=== PATIENT | female | born 1985 | race Caucasian/White ===

== ENCOUNTER 2022-02-16 12:21 | Emergency (ER) | payer BC, SELFPAY ==
[2022-02-16] VITALS (9 sets, daily range): BP systolic 125–137; BP diastolic 84–99; PULSE 63–88; RESP 12–23; TEMP 36.1; O2SAT 99–100
--- NOTE | ~2022-02-16 | XR_ITS ---
EXAMINATION: XR chest 2V 02/16/2022 13:29 INDICATION: Dizziness. Tachycardia. PROCEDURE: 2 view chest COMPARISON: No prior studies for comparison. FINDINGS: The lungs are clear. The cardiomediastinal silhouette is within normal limits. There are no pleural effusions. There is no pneumothorax suspected. IMPRESSION: 1: NO ACUTE CARDIOPULMONARY DISEASE. Reviewed, dictated and finalized at location A.
[2022-02-16] MEDS: MECLIZINE HCL 12.5 MG TABLET PO (13:06)
[2022-02-16 13:25] LABS: Basophils Absolute Auto 0.1 K/mm3 (0.0-0.1); Basophils Percent Auto 0.7 % (0.2-1.2); Eosinophils Absolute Auto 0.3 K/mm3 (0-0.3); Eosinophils Percent Auto 4.1 % (0-4.4); Hematocrit 40.7 % (37.0-47.0); Hemoglobin 13.6 g/dL (12.0-15.0); Immature Granulocyte Absolute 0.02 K/mm3 (0.00-0.031); Immature Granulocyte Percent A 0.3 % (0-0.5); Lymphocytes Percent Auto 46.4 % (18.3-44.2); Mean Corpuscular HGB Conc 33.4 g/dl (32-36); Mean Corpuscular Hemoglobin 29.2 pg (26-34); Mean Corpuscular Volume 87.3 fl (80-100); Mean Platelet Volume 9.4 fl (7.4-10.4); Monocytes Absolute Auto 0.5 K/mm3 (0.1-0.6); Monocytes Percent Auto 7.3 % (2.6-8.5); Neutrophils Absolute Auto 2.8 K/mm3 (1.3-6.7); Neutrophils Percent Auto 41.2 % (45.5-73.1); Platelet Count Result 367 k/mm3 (150-375); Red Blood Count 4.66 M/mm3 (4.2-5.4); Red Cell Distribution Width 12.8 % (11.5-14.5); White Blood Count 6.9 K/mm3 (4.5-10.0)
[2022-02-16 14:26] LABS: Alanine Aminotransferase 30 U/L (6-35); Albumin Level 4.3 g/dL (3.5-5.1); Alkaline Phosphatase 92 U/L (38-126); Anion Gap 10 mmol/L (8-16); Aspartate Amino Transferase 30 U/L (14-36); Bilirubin,Total 0.4 mg/dL (0.2-1.3); Blood Urea Nitrogen 9 mg/dL (7-17); Carbon Dioxide 25 mmol/L (22-30); Chloride 101 mmol/L (98-107); Estimated CRCL calculation 79 ml/min; Estimated Glomerular Filt Rate > 60; Glucose 93 mg/dL (65-110); Potassium 3.3 mmol/L (3.4-5.0); Sodium 136 mmol/L (137-145)
--- NOTE | 2022-02-16 15:12 | ECG_ITS ---
Measurements Intervals [place] Rate: 76 P: [place]: 174 QRS: QRSD: 90 T: QT: 400 QTc: 0 Interpretive Statements SINUS RHYTHM WITH PREMATURE ATRIAL CONTRACTIONS BASELINE ARTIFACT NONSPECIFIC T-WAVE ABNORMALITY BORDERLINE ECG WARNING: DATA QUALITY MAY AFFECT INTERPRETATION NO PREVIOUS ECG AVAILABLE FOR COMPARISON Electronically Signed On 02-16-2022 15:18:27 CDT by Tommy De La Fuente M.D.
--- NOTE | 2022-02-16 15:25 | ED.ARRPALP ---
HPI - Arrhythmia/Palpitations General Chief Complaint: Arrhythmia/Palpitations Stated Complaint: racing heart Time Seen by Provider: 02/16/22 12:36 History of Present Illness HPI narrative: Patient is a 36-year-old female who presents ER with racing of the heart. Her heart rate got up to 110 bpm while she was having episode of feeling flushed and lightheaded like she might pass out. She continued to have these episodes but her heart rate would only get up to 90 bpm. No chest pain or chest pressure. No heaviness. She had no loss of consciousness. No history of vertigo. No spinning dizziness. She does have some mild sinus congestion but no tinnitus or pressure in the ears. Related Data Allergies Allergy/AdvReac Type Severity Reaction Status Date / Time No Known Allergies Allergy Unknown NONE Verified 06/24/11 13:41 Review of Systems Review of Systems: All systems reviewed & are unremarkable except as noted in HPI and below Constitutional: Constitutional: Denies fatigue and Denies fever(s) ENT: Reports dizziness, Reports nasal congestion and Denies sore throat Cardiovascular: Cardiovascular: Denies chest pain, Reports rapid heart rate and Denies radiating jaw, neck or arm pain Respiratory: Respiratory: Denies cough and Denies dyspnea Gastrointestinal: Gastrointestinal: Denies abdominal pain, Denies nausea and Denies vomiting Neurologic: Denies headache(s), Denies focal weakness and Denies numbness PMFSH Past Medical History Medical History (Updated 02/16/22 @ 15:33 by Waqar Zhang MD) Anxiety Depression Surgical History Surgical History (Updated 02/16/22 @ 15:26 by Waqar Zhang MD) History of cholecystectomy Social History Social History (Updated 02/16/22 @ 15:27 by Waqar Zhang MD) Smoking status: Never smoker Exam Narrative: GENERAL: Well-appearing, well-nourished, and in no acute distress. HEAD: Normocephalic, atraumatic. EYES: PERRL and EOMI. ENT: TMs normal bilaterally. CHEST: Clear to auscultation. No respiratory distress. HEART: Regular rate and rhythm. Normal peripheral pulses. ABDOMEN: Soft, nontender, nondistended. EXTREMITIES: Normal range of motion. No edema. SKIN: Warm, dry, no rash. NEURO: Alert and oriented x3. PSYCH: Normal mood and affect. Course Course Emergency Course: Unremarkable evaluation. Patient may have had some vertigo causing her to have some palpitations and disequilibrium. Nothing reproducible here. Discharge home. Vital Signs Vital signs: Vital Signs Temperature 97.0 F L 02/16/22 12:30 Pulse Rate 78 02/16/22 12:30 Respiratory Rate 12 02/16/22 12:30 Blood Pressure 125/84 02/16/22 12:30 Pulse Oximetry 100 02/16/22 12:30 Oxygen Delivery Room Air 02/16/22 12:30 Temperature 97.0 F L 02/16/22 12:30 Pulse Rate 78 02/16/22 12:30 Respiratory Rate 12 02/16/22 12:30 Blood Pressure 125/84 02/16/22 12:30 Pulse Oximetry 100 02/16/22 12:30 Oxygen Delivery Room Air 02/16/22 12:30 MDM - Arrhythmia/Palpitations Lab Data Result diagrams: 02/16/22 13:04 02/16/22 13:04 Labs: Lab Results 02/16/22 02/16/22 02/16/22 Range/Units 13:04 13:04 13:04 WBC 6.9 (4.5-10.0) K/mm3 RBC 4.66 (4.2-5.4) M/mm3 Hgb 13.6 (12.0-15.0) g/dL Hct 40.7 (37.0-47.0) % MCV 87.3 (80-100) fl MCH 29.2 (26-34) pg MCHC 33.4 (32-36) g/dl RDW 12.8 (11.5-14.5) % Plt Count 367 (150-375) k/mm3 MPV 9.4 (7.4-10.4) fl Immature Gran % (Auto) 0.3 (0-0.5) % Neut % (Auto) 41.2 L (45.5-73.1) % Lymph % (Auto) 46.4 H (18.3-44.2) % [place] % (Auto) 7.3 (2.6-8.5) % Eos % (Auto) 4.1 (0-4.4) % Baso % (Auto) 0.7 (0.2-1.2) % Lymph # (Auto) 3.20 (0.9-3.2) K/mm3 [place] # (Auto) 0.5 (0.1-0.6) K/mm3 Eos # (Auto) 0.3 (0-0.3) K/mm3 Baso # (Auto) 0.1 (0.0-0.1) K/mm3 Abs Immat Gran (auto) 0.02 (0.00-0.031) K/mm3 Absolute Neuts
== END 2022-02-16 15:51 | disposition home or self-care (01) ==
PROVIDERS: Emergency Provider Emergency Medicine; PCP Physician Assistant Medical
DX: R00.2 Palpitations (principal); I49.1 Atrial premature depolarization; R94.31 Abnormal electrocardiogram [ECG] [EKG]
CPT/HCPCS: 36415; 71046; 80053; 83735; 84443; 85025; 93005; 99283; A9270

== ENCOUNTER 2023-01-20 10:31 | Emergency (ER) | payer BC, SELFPAY ==
[2023-01-20 10:37] VITALS: BP 118/88; PULSE 76; RESP 16; TEMP 36.3; O2SAT 100
--- NOTE | 2023-01-20 10:56 | ED.DIZZY ---
HPI - Dizziness General Chief Complaint: Dizziness Stated Complaint: LIGHT HEADED Time Seen by Provider: 01/20/23 11:18 Mode of arrival: ambulatory Limitations: no limitations History of Present Illness HPI Narrative: 37-year-old female presents with concern for lightheadedness, diaphoresis, dizziness that started suddenly this morning. She felt like she was went to pass out her feet became tingling in her arms feel heavy. She reports she still feels limb heaviness and is having dizziness, generalized weakness. She denies any unilateral weakness, denies headache. She denies chest pain or shortness of breath. She reports in the past she has felt similarly when she had been sick for some time before. She reports she has had a sore throat for about 3 weeks, but otherwise denies illness. MD elicited complaint: lightheadedness Related Data Home Medications Medication Instructions Recorded Confirmed norgestimate 0.25 mg-ethinyl 1 tablet PO DAILY 03/13/22 01/20/23 estradiol 35 mcg tablet (Estarylla) Allergies Allergy/AdvReac Type Severity Reaction Status Date / Time buspirone [From BuSpar] AdvReac Mild Anxiety Verified 01/20/23 11:07 escitalopram [From Lexapro] AdvReac Mild Unknown Verified 01/20/23 11:07 fluoxetine [From Prozac] AdvReac Mild Swelling Verified 01/20/23 11:07 of Lip/Tongue/Throat sertraline [From Zoloft] AdvReac zombie Verified 01/20/23 11:07 Review of Systems Review of Systems: CONSTITUTIONAL: Denies malaise, chills, sweats, or fever. Reports generalized weakness, lightheadedness, limb heaviness EYES: Denies visual changes, redness, or discharge. ENT: Denies rhinorrhea, congestion, sinus pain, otalgia. Reports sore throat. CARDIOVASCULAR: Denies chest pain, palpitations, or edema. RESPIRATORY: Denies cough or dyspnea. GASTROINTESTINAL: Denies abdominal pain, nausea, vomiting, diarrhea GENITOURINARY: Denies dysuria or hematuria. SKIN: Denies rash or itching. MUSCULOSKELETAL: Denies back pain, joint pain, or myalgia. NEUROLOGIC: Denies numbness, unilateral weakness, or headache. All systems reviewed & are unremarkable except as noted in HPI and below [facility] Past Medical History Medical History ) Anxiety Depression Surgical History Surgical History ) Delivery by section History of cholecystectomy Family History Family History ) Father Alcoholism Hypertension Depression Mother Asthma Hypertension Depression Heart disease Thyroid disorder Social History Social History ) Smoking status: Never smoker Second hand tobacco smoke exposure: No Alcohol intake: current Substance use: never Substance use type: does not use Lack of Transportation: No Lack of Food: Never True Current Housing: I Have Housing Concerned About Future Housing: No Difficulty Paying Gas/Electric Bills: No Difficulty Paying for Meds: No Currently Unemployed: No Education: High School Diploma/GED Difficulty w/ Childcare or Family Care: No Living arrangements: with family Occupation/Education: occupation 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 There is no relevant family history pertinent to the presenting complaint Exam Narrative: GENERAL: Well-appearing, well-nourished, and in no acute distress. HEAD: Normocephalic, atraumatic. EYES: PERRLA, sclera clear, and EOMI. No nystagmus. ENT: Nares clear, turbinates pink, no rhinorrhea or epistaxis. Mucous membranes moist. TM pearly mott with sharp l
--- NOTE | 2023-01-20 10:57 | ECG_ITS ---
Measurements Intervals [place] Rate: 63 P: 69 [place]: 137 QRS: 4 QRSD: 90 T: 39 QT: 420 QTc: 431 Interpretive Statements SINUS RHYTHM NORMAL ECG COMPARED TO ECG 02/16/2022 12:35:33 NO SIGNIFICANT CHANGES Electronically Signed On 01-20-2023 12:44:37 CDT by Christiano Strong D.O.
--- NOTE | 2023-01-20 11:59 | PC.NURSE ---
PT AMBULATORY WITH SLOW STEADY GAIT. NAD NOTED UPON DC.
== END 2023-01-20 11:53 | disposition home or self-care (01) ==
PROVIDERS: Emergency Provider Nurse Practitioner; PCP Physician Assistant Medical
DX: N39.0 Urinary tract infection, site not specified (principal); Z20.822 Contact with and (suspected) exposure to COVID-19
CPT/HCPCS: 81003; 87081; 87086; 87426; 87804; 87880; 93005; 99213; C9803; G0463

== ENCOUNTER 2023-12-09 16:54 | Emergency (ER) | payer BC, SELFPAY ==
--- NOTE | ~2023-12-09 | XR_ITS ---
EXAMINATION: XR chest 2V 12/09/2023 18:21 INDICATION: Syncope PROCEDURE: 2 view chest COMPARISON: 02/16/2022 FINDINGS: The lungs are clear. The cardiomediastinal silhouette is within normal limits. There are no pleural effusions. There is no pneumothorax suspected. IMPRESSION: 1: NO ACUTE CARDIOPULMONARY DISEASE. Reviewed, dictated and finalized at location B.
[2023-12-09 16:58] VITALS: BP 135/84; PULSE 72; RESP 16; TEMP 36.6; O2SAT 100
--- NOTE | 2023-12-09 17:46 | ECG_ITS ---
Test Date: 2023-12-09 17:53:20 Measurements Intervals [place] Rate: 63 P: 59 [place]: 128 QRS: 16 QRSD: 90 T: 50 QT: 401 QTc: 411 Interpretive Statements SINUS RHYTHM CANNOT R/O SEPTAL INFARCT, AGE INDETERMINATE BORDERLINE ST-T WAVE ABNORMALITY- ANTEROLAT/INF LEADS BASELINE ARTIFACT- I, II, AVR, AVL, AVF BORDERLINE ECG No previous ECG available for comparison Electronically Signed On 12-09-2023 20:31:12 CDT by Christiano Strong D.O.
[2023-12-09 18:16] LABS: Basophils Absolute Auto 0.1 K/mm3 (0.0-0.1); Basophils Percent Auto 0.6 % (0.2-1.2); Eosinophils Absolute Auto 0.1 K/mm3 (0-0.3); Eosinophils Percent Auto 1.1 % (0-4.4); Hematocrit 46.2 % (37.0-47.0); Hemoglobin 15.5 g/dL (12.0-15.0); Immature Granulocyte Absolute 0.05 K/mm3 (0.00-0.031); Immature Granulocyte Percent A 0.4 % (0-0.5); Lymphocytes Absolute Auto 3.28 K/mm3 (0.9-3.2); Lymphocytes Percent Auto 26.5 % (18.3-44.2); Mean Corpuscular HGB Conc 33.5 g/dl (32-36); Mean Corpuscular Hemoglobin 29.3 pg (26-34); Mean Corpuscular Volume 87.3 fl (80-100); Monocytes Absolute Auto 0.7 K/mm3 (0.1-0.6); Monocytes Percent Auto 5.4 % (2.6-8.5); Neutrophils Absolute Auto 8.2 K/mm3 (1.3-6.7); Platelet Count Result 384 k/mm3 (150-375); Red Blood Count 5.29 M/mm3 (4.2-5.4); Red Cell Distribution Width 12.3 % (11.5-14.5); White Blood Count 12.4 K/mm3 (4.5-10.0)
[2023-12-09 18:26] LABS: Alanine Aminotransferase 16 U/L (6-35); Albumin Level 4.9 g/dL (3.5-5.1); Alkaline Phosphatase 104 U/L (38-126); Anion Gap 13 mmol/L (4-12); Aspartate Amino Transferase 21 U/L (14-36); Bilirubin,Total 0.5 mg/dL (0.2-1.3); Blood Urea Nitrogen 10 mg/dL (7-17); Calcium 9.4 mg/dL (8.4-10.2); Carbon Dioxide 26 mmol/L (22-30); Chloride 99 mmol/L (98-107); Estimated CRCL calculation 84 ml/min; Estimated Glomerular Filt Rate > 60; Glucose 93 mg/dL (65-110); Potassium 3.5 mmol/L (3.4-5.0); Sodium 138 mmol/L (137-145)
[2023-12-09 19:22] VITALS: BP 139/86; PULSE 85; RESP 25; O2SAT 100
[2023-12-09 19:26] VITALS: O2SAT 100
--- NOTE | 2023-12-09 19:49 | ED.GENADULT ---
HPI - General Adult General Chief complaint: Syncope Stated complaint: having some kind of spells Time Seen by Provider: 12/09/23 19:11 History of Present Illness HPI narrative: This is a 30-year-old female with a past medical history including recurrent palpitations, presyncope episodes. Patient states she has been having symptoms ongoing for over 1 year and they occur sporadically and randomly. Patient states she has had numerous evaluations for various etiologies that could be causing her symptomatology and she has had no clear diagnosis is sent from potentially being rheumatologic causes she did have ULISA. She has not been able to successfully follow-up with designer architect as she has not had replaced experience with previous visit. Patient states she had an episode of presyncope yesterday was at the office with her primary care provider. She states she had sensation of numbness and tingling around her mouth and in her finger tips of the palpitation sensations. She states this lasts for several minutes and she had to lie down on the floor for it to stop. Patient states she has been told she has had anxiety. Presently during my initial evaluation patient has no acute complaints and is asymptomatic. Patient states she has no chest pain, shortness Jennifer, nausea, vomiting, headache, vision changes, abdominal pain, back pain, weakness, fatigue, neuropathy. She states she was encouraged to go to the ED should her symptoms recur after she spoke to her primary doctor. Patient denies any chance of as she just finished her period yesterday. Related Data Home Medications Medication Instructions Recorded Confirmed calcium carbonate 500 mg-vitamin tablet PO 02/25/23 12/08/23 D3 200 unit-vitamin K2 90 mcg tablet cod liver oil 1 cap PO DAILY 02/25/23 12/08/23 valacyclovir 1 gram tablet 1,000 mg PO DAILY 02/25/23 12/08/23 Allergies Allergy/AdvReac Type Severity Reaction Status Date / Time amoxicillin [From Augmentin] Allergy Severe Anaphylaxis Verified 12/09/23 16:54 clavulanic acid Allergy Severe Anaphylaxis Verified 12/09/23 16:54 [From Augmentin] buspirone [From BuSpar] AdvReac Mild Anxiety Verified 12/09/23 16:54 escitalopram [From Lexapro] AdvReac Mild Unknown Verified 12/09/23 16:54 fluoxetine [From Prozac] AdvReac Mild Swelling Verified 12/09/23 16:54 of Lip/Tongue/Throat sertraline [From Zoloft] Adenike urbano Verified 12/09/23 16:54 Review of Systems Review of Systems: As reviewed above in the HPI and otherwise negative [facility] Past Medical History Medical History LUISA positive Anxiety Depression Psoriatic arthritis Surgical History Surgical History Delivery by section History of cholecystectomy Family History Family History Father Alcoholism Hypertension Depression Mother Asthma Hypertension Depression Heart disease Thyroid disorder Social History Social History Smoking status: Never smoker Second hand tobacco smoke exposure: No Alcohol intake: current Substance use: never Substance use type: does not use Lack of Transportation: No Lack of Food: Never True Current Housing: I Have Housing Concerned About Future Housing: No Difficulty Paying Gas/Electric Bills: No Difficulty Paying for Meds: No Currently Unemployed: No Education: High School Diploma/GED Difficulty w/ Childcare or Family Care: No Living arrangements: with family Occupation/Education: occupation 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
== END 2023-12-09 21:14 | disposition home or self-care (01) ==
PROVIDERS: Emergency Medicine; Emergency Provider Student in an Organized Health Care Education/Training Program; PCP Physician Assistant Medical
DX: R00.2 Palpitations (principal); R55 Syncope and collapse; R76.0 Raised antibody titer; L40.50 Arthropathic psoriasis, unspecified; Z90.49 Acquired absence of other specified parts of digestive tract; R94.31 Abnormal electrocardiogram [ECG] [EKG]
CPT/HCPCS: 36415; 71046; 80053; 85025; 93005; 99284

== ENCOUNTER 2024-04-24 14:11 | Emergency (ER) | payer BC, SELFPAY ==
--- NOTE | 2024-04-24 14:16 | ED_ITS ---
HPI - URI/Sore Throat General Chief Complaint: Upper Respiratory Infection Stated Complaint: Sore Throat Time Seen by Provider: 04/24/24 14:43 Source: patient Mode of arrival: ambulatory Limitations: no limitations History of Present Illness HPI Narrative: Edwina is a 38-year-old female patient presenting to the clinic today with complaints of sore throat, sinus pressure and congestion, chest heaviness, and nasal congestion x2 weeks. MD elicited complaint: sore throat, nasal congestion and sinus pain Related Data Home Medications Medication Instructions Recorded Confirmed calcium 500 mg (as 1 tablet PO DAILY 02/25/23 04/24/24 carbonate)-vitamin D3 200 unit-vit K2 90 mcg tablet cod liver oil 1 cap PO DAILY 02/25/23 04/24/24 Allergies Allergy/AdvReac Type Severity Reaction Status Date / Time amoxicillin [From Augmentin] Allergy Severe Anaphylaxis Verified 04/24/24 14:46 clavulanic acid Allergy Severe Anaphylaxis Verified 04/24/24 14:46 [From Augmentin] buspirone [From BuSpar] AdvReac Mild Anxiety Verified 04/24/24 14:46 escitalopram [From Lexapro] AdvReac Mild Unknown Verified 04/24/24 14:46 fluoxetine [From Prozac] AdvReac Mild Swelling Verified 04/24/24 14:46 of Lip/Tongue/Throat sertraline [From Zoloft] AdvReac zombie Verified 04/24/24 14:46 Review of Systems Review of Systems: Pertinent positives per HPI. Patient denies any fever, chills, rash, headache, visual changes, dizziness, chest pain, palpitations, nausea, vomiting, diarrhea, constipation, abdominal pain, or any urinary issues. [facility] Past Medical History Medical History LUISA positive Anxiety Depression Psoriatic arthritis Surgical History Surgical History Delivery by section History of cholecystectomy Family History Family History Father Alcoholism Hypertension Depression Mother Asthma Hypertension Depression Heart disease Thyroid disorder Social History Social History Smoking status: Never smoker Second hand tobacco smoke exposure: No Alcohol intake: current Substance use: never Substance use type: does not use Lack of Transportation: No Lack of Food: Never True Current Housing: I Have Housing Concerned About Future Housing: No Difficulty Paying Gas/Electric Bills: No Difficulty Paying for Meds: No Currently Unemployed: No Education: High School Diploma/GED Difficulty w/ Childcare or Family Care: No Living arrangements: with family Occupation/Education: occupation 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 There is no relevant family history pertinent to the patient complaint. Exam Narrative: General: Well-developed, well nourished, in no apparent distress Head: Normocephalic, atraumatic Eyes: Pupils equally round and reactive to light bilaterally, EOM intact, sclera and conjunctive clear, no discharge, lids normal Ears: TMs intact and clear, ear canals clear, no drainage, grossly hearing normal. Nose: Nares patent, clear nasal discharge, moderate inflammation, maxillary sinus tenderness. Mouth: Oral pharynx without lesions or masses, good dentition, MMM. Postnasal drip Neck: Supple, trachea midline, no enlargement of anterior or posterior cervical nodes, no thyroid masses or goiter palpable. Cardio: Regular rate and rhythm, s1 and s2 normal, no murmur appreciated. Resp: Clear to auscultation bilaterally, no rhonchi, rales, wheezing or rubs Course Course Emergency Course: Portions of this record may have been created with voice recognition software. Level of Care: Express Care Visit Vital Signs Vital signs: Vital Signs Temperature 36.3 C L 04/24/24 14:38 Pulse Rate 73 04/24/24 14:38 Respiratory Rate 15 04/24/24 14:38 Blood Pressure 111/85 04/24/24 14:38 Pulse Oximetry 100 04/24/24 14:38 Oxygen Delivery Room Air 04/24/24 14:38 Temperature 36.3 C L 04/24/24 14:38 Pulse Rate 73 04/24/24 14:38 Respiratory Rate 15 04/24/24 14:38 Blood Pressure 111/85 04/24/24 14:38 Pulse Oximetry 100 04/24/24 14:38 Oxygen Delivery Room Air 04/24/24 14:38 Vital signs reviewed MDM - URI/Sore Throat MDM Narrative Medical decision making narrative: At the time of visit patient is resting comfortably on the exam table. Patient appears to be nontoxic. Plan: I suspect patient has acute bacterial rhinosinusitis. Prescription for doxycycline and albuterol inhaler was sent to the pharmacy. Supportive measures were discussed with the patient and they voiced understanding discharge instructions and agrees to treatment plan. Return precautions reviewed Differential Diagnosis Differential diagnosis: Likely upper respiratory infection, otitis media, sinusitis, viral infection, bronchitis, influenza, pharyngitis and other (COVID) Lab Data Labs: Lab Results 04/24/24 Range/Units 15:11 POC Influenza A Ag Negative (Negative) POC Influenza B Ag Negative (Negative) POC SARS CoV-2 Ag Negative (Negative) POC Grp A Strep Screen Negative (Negative) Discharge Plan Discharge Clinical Impression: Acute bacterial rhinosinusitis Patient Disposition: Home, Self-Care Condition: Stable Instructions: Antibiotic Form, Rhinosinusitis (ED) Additional Instructions: COVID, flu, and strep test were all negative in the clinic today. We will send strep for culture. Take prescription medications only as prescribed-doxycycline and albuterol inhaler Increase fluids and stay well hydrated Tylenol/motrin for pain/fever Flonase and OTC antihistamines as directed Vicks vapor rub to open sinuses Sinus rinses for congestion Cepacol spray, cough drops, throat lozenges, warm tea with honey/lemon, gargle salt water to soothe throat BRAT diet for diarrhea Clear liquids x 24 hours then advance as tolerated for nausea/vomiting Go to the ED if you develop a worsening in your condition- high fever not controlled by Tylenol or Motrin, dehydration, weakness, lethargy, shortness of breath, or chest pain. Follow up with your PCP in 3-5 days if symptoms persist. Prescriptions: New doxycycline monohydrate 100 mg capsule 100 mg PO BID 10 Days Qty: 20 0RF albuterol sulfate 90 mcg/actuation HFA aerosol inhaler 2 puff inhalation Q4-6H PRN (Reason: shortness of breath or wheezing) 30 Days Qty: 8.5 0RF No Action calcium carb-vitamin D3-vit K2 500 mg calcium- 200 unit-90 mcg tablet 1 tablet PO DAILY cod liver oil Capsule 1 cap PO DAILY Follow-up/Referrals: Michelle Arguello PA-C [Primary Care Provider] - Time of Disposition: 15:15 Quality NIHSS Nursing Documentation ED NIHSS nursing documentation: reviewed/agree
[2024-04-24 14:38] VITALS: BP 111/85; PULSE 73; RESP 15; TEMP 36.3; O2SAT 100
[2024-04-24 15:14] LABS: EDCOVIDSCREEN Negative (Negative); EDINFLUASCREEN Negative (Negative); EDINFLUBSCREEN Negative (Negative); EDSTREPNEGPOS1 Negative (Negative)
== END 2024-04-24 15:18 | disposition home or self-care (01) ==
PROVIDERS: Emergency Provider Nurse Practitioner Family; PCP Physician Assistant Medical
DX: J01.90 Acute sinusitis, unspecified (principal); Z20.822 Contact with and (suspected) exposure to COVID-19; L40.50 Arthropathic psoriasis, unspecified
CPT/HCPCS: 87081; 87426; 87804; 87880; 99213; G0463